=== PATIENT | female | born 1995 | race African-American/Black ===

== ENCOUNTER 2016-12-04 11:56 | Emergency (ER) | payer OTHER ==
[~2016-12-04] VITALS: Ht 152.4 cm; Wt 58.1 kg
== END 2016-12-04 12:27 | disposition home or self-care (01) ==
LOC: ED 11:56
DX: H65.191 Other acute nonsuppurative otitis media, right ear (principal)
CPT/HCPCS: 99282

== ENCOUNTER 2017-05-20 16:21 | Emergency (ER) | payer OTHER ==
[~2017-05-20] VITALS: Ht 160 cm; Wt 54.4 kg
== END 2017-05-20 18:13 | disposition home or self-care (01) ==
LOC: ED 16:21
DX: R09.81 Nasal congestion (principal)
CPT/HCPCS: 99281

== ENCOUNTER 2019-01-09 00:51 | Emergency (ER) | payer OTHER ==
[~2019-01-09] VITALS: Ht 152.4 cm; Wt 58.1 kg
[2019-01-09 03:07] VITALS: BP 129/77; TEMP 99.1
== END 2019-01-09 03:07 | disposition home or self-care (01) ==
LOC: ED 00:51
DX: N30.00 Acute cystitis without hematuria (principal)
CPT/HCPCS: 81000; 81025; 99282

== ENCOUNTER 2019-07-25 10:54 | Outpatient (CLI) | payer OTHER | END 2019-07-25 19:15 | disposition home or self-care (01) | LOC: US 10:54 | DX: N63.0 Unspecified lump in unspecified breast (principal) ==

== ENCOUNTER 2019-08-11 20:16 | Emergency (ER) | payer OTHER ==
[~2019-08-11] VITALS: Ht 152.4 cm; Wt 58.5 kg
[2019-08-11 22:15] VITALS: BP 123/81; TEMP 97.4
== END 2019-08-11 22:23 | disposition short-term general hospital (02) ==
LOC: ED 20:16
DX: N93.8 Other specified abnormal uterine and vaginal bleeding (principal)
CPT/HCPCS: 81000; 81025; 84702; 99284

== ENCOUNTER 2019-08-11 21:17 | Outpatient (CLI) | payer OTHER | END 2019-08-11 22:48 | disposition short-term general hospital (02) | LOC: AMB 21:17 | DX: R10.9 Unspecified abdominal pain (principal); O20.9 Hemorrhage in early pregnancy, unspecified; Z3A.00 Weeks of gestation of pregnancy not specified | CPT/HCPCS: A0425; A0429 ==

== ENCOUNTER 2022-03-23 17:16 | Outpatient (CLI) | payer OTHER | END 2022-03-23 19:02 | disposition home or self-care (01) | LOC: RAD 17:16 | PROVIDERS: ATTEND Psychiatry & Neurology Neurology | DX: M54.2 Cervicalgia (principal) ==

== ENCOUNTER 2023-03-08 00:35 | Emergency (ER) | payer OTHER ==
[~2023-03-08] VITALS: Ht 149.9 cm; Wt 61.7 kg
[2023-03-08] MEDS ORDERED: ALLERGY RELIEF25 MG PO (00:52)
[2023-03-08] MEDS ORDERED: KETOROLAC10 MG PO (00:52)
[2023-03-08] MEDS ORDERED: METOCLOPRAM10 MG PO (00:53)
[2023-03-08 00:57] LABS: POTASSIUM 3.5 mmol/L (3.6-5.2); SODIUM 137 mmol/L (136-145)
[2023-03-08 01:30] VITALS: BP 127/80
[2023-03-08 01:58] LABS: PLATELET COUNT 385 K/uL (152-353)
== END 2023-03-08 01:30 | disposition home or self-care (01) ==
LOC: ED 00:35
PROVIDERS: Emergency Medicine
DX: R07.9 Chest pain, unspecified (principal); F41.9 Anxiety disorder, unspecified
CPT/HCPCS: 36415; 80053; 81025; 84484; 85027; 99283